=== PATIENT | female | born 1950 | race Hispanic/Latino ===

== ENCOUNTER → 2020-06-04 | Outpatient (CLI) | payer OTHER ==
[~2020-06-04] VITALS: Ht 151.1 cm; Wt 52.8 kg
[~2020-06-04] MED LIST: ESTR0.452 PO; LACTATED RINGERS 1000ML 1,000 ML IV SCH; LEVO125T11 PO; ROSU10TA28 PO
[2020-06-04 10:22] LABS: BASOPHILS % (AUTO) 0.3 % (0.0-5.0); EOSINOPHILS % (AUTO) 0.6 % (0.0-8.0); HEMATOCRIT 35.6 % (36-48); MEAN CORPUSCULAR HEMOGLOBIN 32.4 pg (27.0-33.0); MEAN CORPUSCULAR VOLUME 95.2 fL (79-99); MONOCYTES % (AUTO) 6.1 % (3.0-13.0); NEUTROPHILS % (AUTO) 50.8 % (40.0-77.0); PLATELET COUNT (AUTO) 222 K/uL (130-400); RED BLOOD CELL COUNT(AUTO) 3.74 MIL/uL (4.00-5.50); RED CELL DISTRIBUTION WIDTH 11.8 % (11.0-15.5); WHITE BLOOD COUNT (AUTO) 6.4 K/uL (4.8-10.8)
[2020-06-08 12:50] VITALS: BP 141/60
== END | disposition home or self-care (01) ==
LOC: DAH 10:00 → EDSTATUS 06-08 08:00
PROVIDERS: ATTEND Obstetrics & Gynecology
DX: Z01.818 Encounter for other preprocedural examination (principal); Z20.828 Contact with and (suspected) exposure to other viral communicable diseases; N99.3 Prolapse of vaginal vault after hysterectomy; N39.3 Stress incontinence (female) (male); E78.5 Hyperlipidemia, unspecified; Z53.8 Procedure and treatment not carried out for other reasons; Z83.3 Family history of diabetes mellitus; Z79.899 Other long term (current) drug therapy
CPT/HCPCS: 36415; 85025; 86850; 86900; 86901; C9803; U0003

== ENCOUNTER 2020-07-10 05:28 | Observation (INO) | payer OTHER ==
[2020-07-09 13:27] LABS: BASOPHILS % (AUTO) 0.3 % (0.0-5.0); EOSINOPHILS % (AUTO) 0.7 % (0.0-8.0); LYMPHOCYTES % (AUTO) 38.7 % (21.0-51.0); MEAN CORPUSCULAR HEMOGLOBIN 31.6 pg (27.0-33.0); MEAN CORPUSCULAR HGB CONC 32.8 g/dL (32.0-36.0); MEAN CORPUSCULAR VOLUME 96.3 fL (79-99); MONOCYTES % (AUTO) 5.1 % (3.0-13.0); NEUTROPHILS % (AUTO) 54.9 % (40.0-77.0); PLATELET COUNT (AUTO) 235 K/uL (130-400); RED BLOOD CELL COUNT(AUTO) 3.74 MIL/uL (4.00-5.50); RED CELL DISTRIBUTION WIDTH 11.7 % (11.0-15.5); WHITE BLOOD COUNT (AUTO) 6.8 K/uL (4.8-10.8)
[2020-07-09 13:57] VITALS: BP 165/93
[2020-07-10] VITALS (24 sets, daily range): BP systolic 109–155; BP diastolic 44–96
[~2020-07-10] VITALS: Ht 151.1 cm; Wt 52.9 kg
[~2020-07-10 05:28] MED LIST changes: -LACTATED RINGERS 1000ML 1,000 ML IV SCH; +PHARMACY COMMUNICATION MISC SCH
[2020-07-10] MEDS: CEFAZOLIN SODIUM 1 GM VIAL IVP SCH ×2 (06:00→08:35)
[2020-07-10] MEDS ORDERED: LACTATED RINGERS 1000ML 1,000 ML IV SCH (06:00)
[2020-07-10] MEDS ORDERED: SCOPOLAMINE HYDROBROMIDE 1 EACH ADH..PATCH TD ONE (07:51)
[2020-07-10] MEDS ORDERED: SCOPOLAMINE HYDROBROMIDE 1 EACH ADH..PATCH TD SCH (08:15)
[2020-07-10] MEDS ORDERED: FENTANYL CITRATE PF 50 MCG/1 ML 2ML VIAL ONE (08:22)
[2020-07-10] MEDS ORDERED: MIDAZOLAM HCL 1 MG/ML 2ML VIAL ONE (08:22)
[2020-07-10] MEDS ORDERED: LIDOCAINE PF 2% 5ML ABBOJECT ONE (08:22)
[2020-07-10] MEDS ORDERED: ONDANSETRON HCL 4 MG/2 ML VIAL ONE (08:22)
[2020-07-10] MEDS ORDERED: DEXAMETHASONE SOD PHOSPHATE 10MG/ML 1ML VIAL ONE (08:22)
[2020-07-10] MEDS ORDERED: ROCURONIUM 10MG/1ML SYR 10 MG/ML ML ONE (08:22)
[2020-07-10] MEDS ORDERED: PROPOFOL 10 MG/ML 20ML VIAL IV ONE (08:22)
[2020-07-10] MEDS ORDERED: GLYCOPYRROLATE 1 MG/5 ML SYRINGE ONE (09:28)
[2020-07-10] MEDS ORDERED: KETOROLAC TROMETHAMINE 30MG/ML ONE (09:46)
[2020-07-10] MEDS ORDERED: NEOSTIGMINE 5MG/5ML SYR IV ONE (09:50)
[2020-07-10] MEDS ORDERED: ONDANSETRON HCL 4 MG/2 ML VIAL IVP PRN (11:45)
[2020-07-10] MEDS ORDERED: IBUPROFEN 600 MG TABLET PO PRN (11:45)
[2020-07-10] MEDS ORDERED: PROMETHAZINE HCL 25 MG/ML 1ML AMPULE IM PRN (11:45)
[2020-07-10] MEDS ORDERED: BISACODYL 10 MG SUPP.RECT RC PRN (11:45)
[2020-07-10] MEDS: ACETAMINOPHEN-CODEINE 300/30MG TAB PO PRN ×3 (11:54→23:41)
[2020-07-10] MEDS ORDERED: FLU VACC QS2020-21(6MOS UP)/PF 60 MCG/0.5 ML ML IM ONE (12:30)
--- NOTE | 2020-07-10 12:30 | NUR ---
ASSESSMENT: RECEIVED SITTING UP IN BED, EXPLAINED POC AND UNDERSTANDING VERBALIZED, CALL MURPHY AT HER SIDE.
[2020-07-10] MEDS: FLU VACC QS2020-21(6MOS UP)/PF 60 MCG/0.5 ML ML IM SCH ×2 (17:48→20:40)
[2020-07-10] MEDS: DEXTROSE 5 %-0.45 % NACL 1,000 ML IV PRN (17:52)
[2020-07-11 03:39] VITALS: BP 95/54
[2020-07-11] MEDS: DEXTROSE 5 %-0.45 % NACL 1,000 ML IV PRN (03:47)
[2020-07-11 05:51] LABS: HEMATOCRIT 32.5 % (36-48); MEAN CORPUSCULAR HEMOGLOBIN 31.5 pg (27.0-33.0); MEAN CORPUSCULAR HGB CONC 32.3 g/dL (32.0-36.0); MEAN CORPUSCULAR VOLUME 97.6 fL (79-99); RED BLOOD CELL COUNT(AUTO) 3.33 MIL/uL (4.00-5.50); RED CELL DISTRIBUTION WIDTH 11.9 % (11.0-15.5); WHITE BLOOD COUNT (AUTO) 8.8 K/uL (4.8-10.8)
[2020-07-11] MEDS: ACETAMINOPHEN-CODEINE 300/30MG TAB PO PRN ×2 (06:00→15:03)
--- NOTE | 2020-07-11 07:00 | NUR ---
PT. SITTING UP IN CHAIR, WELL TOLERATED.
[2020-07-11 07:31] VITALS: BP 98/55
--- NOTE | 2020-07-11 08:45 | NUR ---
perez catheter tubing removed, applied plug. informed of the bladder training procedure, informed to call for assistance to the bathroom. pt voiced understanding of the bladder training Addendum: 07/11/20 at 1056 by MONTANA MOLINA RN Amended: Links added.
--- NOTE | 2020-07-11 08:50 | NUR ---
ambulating in the hallway in steady gait Addendum: 07/11/20 at 1057 by MONTANA MOLINA RN Amended: Links added.
[2020-07-11] MEDS: SIMETHICONE 80 MG TAB.CHEW PO PRN ×2 (09:35→21:35)
[2020-07-11] MEDS: DOCUSATE SODIUM 100 MG CAP PO PRN ×2 (09:35→21:35)
[2020-07-11 11:17] VITALS: BP 116/66
[2020-07-11] MEDS ORDERED: HYDROCODONE/ACETAMINOPHEN 5/325 MG TAB PO PRN (13:00)
[2020-07-11 15:16] VITALS: BP 113/53
[2020-07-11 20:09] VITALS: BP 112/63
[2020-07-11] MEDS: IBUPROFEN 800 MG TAB PO PRN (21:37)
[2020-07-11 23:55] VITALS: BP 118/58
[2020-07-12] MEDS: ACETAMINOPHEN-CODEINE 300/30MG TAB PO PRN (01:18)
[2020-07-12 03:47] VITALS: BP 106/56
[2020-07-12 07:20] VITALS: BP 109/60
[2020-07-12] MEDS: DOCUSATE SODIUM 100 MG CAP PO PRN (09:26)
[2020-07-12] MEDS: IBUPROFEN 800 MG TAB PO PRN (09:26)
[2020-07-12] MEDS: SIMETHICONE 80 MG TAB.CHEW PO PRN (09:27)
[2020-07-12 11:16] VITALS: BP 120/75
--- NOTE | 2020-07-12 13:15 | NUR ---
pt is discharged. verbal and written discharge instructions given. informed of the follow up appointment, prescription given. informed to call the doctor for further concerns. pt voiced understanding to all things discussed. Addendum: 07/12/20 at 1355 by MONTANA MOLINA RN Amended: Links added.
--- NOTE | 2020-07-12 13:35 | NUR ---
pt is dismissed in stable condition, brought to private car via wheelchair Addendum: 07/12/20 at 1357 by MONTANA MOLINA RN Amended: Links added.
== END 2020-07-12 13:35 | disposition home or self-care (01) ==
LOC: DAH 05:28 → WSH 05:29 → DAH 05:29 → OBSVTOIN 05:29 → INTOOBSV 05:29 → WSH 11:20
PROVIDERS: ADMIT Obstetrics & Gynecology; ATTEND Obstetrics & Gynecology
DX: N81.11 Cystocele, midline (principal); Z20.828 Contact with and (suspected) exposure to other viral communicable diseases; N81.6 Rectocele; N39.3 Stress incontinence (female) (male); N81.5 Vaginal enterocele; E78.5 Hyperlipidemia, unspecified; Z23 Encounter for immunization; Z90.710 Acquired absence of both cervix and uterus; Z79.899 Other long term (current) drug therapy
CPT/HCPCS: 36415 ×3; 51040; 57265; 57288; 85025; 85027; 86850; 86900; 86901; 88302; 88305; 96360; 96361 ×3; A4215; A4216; A4221; A4222; A4223 ×2; A4344; A4351; A4452; A4510; A4600; A4606; A4663; A4930; A6260; C1771; C9803; G0008; G0378 ×20; J0690; J1100; J1885; J2001; J2250; J2405; J2704; J2710; J3010; J3490; J7120 ×2; Q2035; U0003

== ENCOUNTER 2020-07-21 17:56 | Emergency (ER) | payer OTHER ==
[~2020-07-21 17:56] MED LIST changes: -PHARMACY COMMUNICATION MISC SCH
== END 2020-07-21 18:47 | disposition home or self-care (01) ==
LOC: EDH 17:56
DX: R33.9 Retention of urine, unspecified (principal); Z90.49 Acquired absence of other specified parts of digestive tract; Z90.710 Acquired absence of both cervix and uterus; Z88.6 Allergy status to analgesic agent
CPT/HCPCS: 51702

== ENCOUNTER → 2023-07-29 | Outpatient (CLI) | payer MEDICARE ==
[2023-07-29 12:57] LABS: T4 (THYROXINE) 8.1 ug/dL (4.7-13.3); THYROID STIMULATING HORMONE 2.38 uIU/mL (0.36-3.74)
== END | disposition home or self-care (01) ==
LOC: LAB 08:05
PROVIDERS: ATTEND Internal Medicine Cardiovascular Disease
DX: E03.9 Hypothyroidism, unspecified (principal)
CPT/HCPCS: 36415; 84436; 84443; 84479

== ENCOUNTER 2024-05-19 07:18 | Emergency (ER) | payer MEDICARE ==
[~2024-05-19] VITALS: Ht 149.9 cm; Wt 51.7 kg
[~2024-05-19 07:18] MED LIST changes: -ROSU10TA28 PO; +ROSU10TA72 PO
[2024-05-19 08:05] LABS: BASOPHILS # (AUTO) 0.02 K/uL (0.00-0.20); BASOPHILS % (AUTO) 0.3 % (0.0-5.0); EOSINOPHILS # (AUTO) 0.08 K/uL (0.00-0.70); EOSINOPHILS % (AUTO) 1.3 % (0.0-8.0); HEMATOCRIT 35.6 % (36-48); IMMATURE GRANULOCYTE ABSOLUTE 0.01 K/uL (0-1); LYMPHOCYTES % (AUTO) 47.2 % (21.0-51.0); MEAN CORPUSCULAR HEMOGLOBIN 32.6 pg (27.0-33.0); MONOCYTES # (AUTO) 0.4 K/uL (0.1-1.0); NEUTROPHILS # (AUTO) 2.9 K/uL (1.8-7.7); PLATELET COUNT (AUTO) 218 K/uL (130-400); RED BLOOD CELL COUNT(AUTO) 3.71 MIL/uL (4.00-5.50); RED CELL DISTRIBUTION WIDTH 12.5 % (11.0-15.5); WHITE BLOOD COUNT (AUTO) 6.4 K/uL (4.8-10.8)
[2024-05-19 08:20] LABS: ALBUMIN 4.1 g/dL (3.5-5.0); BILIRUBIN,TOTAL 0.6 mg/dL (0.2-1.0); CREATININE 0.9 mg/dL (0.5-1.0); POTASSIUM 3.6 mmol/L (3.5-5.1); TOTAL PROTEIN, SERUM 7.4 g/dL (6.0-8.3)
[2024-05-19] MEDS: amLODIPine 5 MG TAB PO ONE (08:31)
[2024-05-19] MEDS: ALPRAZolam 0.25 MG TABLET PO ONE (08:39)
[2024-05-19 10:14] VITALS: BP 113/56; PULSE 56; RESP 18; O2SAT 99
[2024-05-19] MEDS ORDERED: HYDR-3421 PO (10:24)
== END 2024-05-19 11:10 | disposition home or self-care (01) ==
LOC: EDH 07:18
DX: F41.9 Anxiety disorder, unspecified (principal); I10 Essential (primary) hypertension; Z79.890 Hormone replacement therapy; Z88.5 Allergy status to narcotic agent; Z90.710 Acquired absence of both cervix and uterus
CPT/HCPCS: 36415; 80053; 84484; 85025; 93005